=== PATIENT | female | born 1950 | race Caucasian/White ===

== ENCOUNTER 2016-10-25 09:01 | Day surgery (SDC) | payer MEDICARE, OTHER ==
[~2016-10-25] VITALS: Ht 162.6 cm; Wt 86.9 kg
[2016-10-25 09:42] VITALS: Ht 162.6 cm; Wt 86.9 kg
[2016-10-25] MEDS ORDERED: OMEP40CA6 PO (09:53)
[2016-10-25] MEDS ORDERED: GEMF600T PO (09:53)
[2016-10-25] MEDS ORDERED: ASPI81TA3 PO (09:53)
[2016-10-25] MEDS ORDERED: BIOT25004 PO (09:54)
[2016-10-25] MEDS ORDERED: CALC600T5 PO (09:54)
[2016-10-25] MEDS ORDERED: TURM500C3 PO (09:54)
[2016-10-25] MEDS ORDERED: CELE200C (09:54)
[2016-10-25] MEDS ORDERED: PROPOFOL 40 ML ONE (10:05)
[2016-10-25] MEDS ORDERED: LIDOCAINE 1% (MPF) 5 ML VIAL ONE (10:06)
[2016-10-25 10:07] VITALS: BP 143/74; PULSE 89; RESP 16
[2016-10-25] MEDS ORDERED: FENTAnyl 50 MCG/ML VIAL ONE (10:09)
[2016-10-25 10:32] VITALS: BP 122/71; PULSE 75; RESP 19
[2016-10-25 10:56] VITALS: BP 138/83; RESP 20
--- NOTE | 2016-11-18 08:44 | GILP ---
DATE OF PROCEDURE: 10/25/2016 PROCEDURE PERFORMED: Colonoscopy. INDICATION: This 66-year-old female is undergoing this procedure for screening colonoscopy. DESCRIPTION OF PROCEDURE: The risks of the procedure, related and unrelated complications, anesthetic risks all explained. Informed consent was obtained. The patient was brought to the GI Lab, sedated by the anesthesiologist. After optimum sedation, the scope was passed with much ease into the rectum, advanced slowly to the sigmoid, descending, and transverse colon all the way into the cecum, and finally into the terminal ileum. The terminal ileum was normal. The rest of the colon was normal. Retroversion done in the rectum which was also normal. No gross lesions were identified. Clarity was good. Cleanliness was good. IMPRESSION: 1. Normal findings all the way into cecum. 2. Normal terminal ileum. 3. Normal retroversion in the rectum. 4. Clarity and cleanliness were good. PLAN: Stay on a high-fiber diet. ADDENDUM: This procedure was done on 10/25/2016 but dictated today because the dictation was not working for almost 10 days. Dictated By: Gregory Michael MD /[email or web address]/dian /Document#: [id number] ; RAVI TOMAS
== END 2016-10-25 11:07 | disposition home or self-care (01) ==
LOC: GIL 09:01
PROVIDERS: ATTEND Internal Medicine Gastroenterology
DX: Z12.11 Encounter for screening for malignant neoplasm of colon (principal); E78.5 Hyperlipidemia, unspecified; E66.9 Obesity, unspecified; Z68.32 Body mass index [BMI] 32.0-32.9, adult
CPT/HCPCS: J3010